=== PATIENT | female | born 1990 | race Caucasian/White ===

== ENCOUNTER 2019-03-21 18:31 | Emergency (ER) | payer OTHER ==
[~2019-03-21] VITALS: Ht 162.6 cm; Wt 102.5 kg
[~2019-03-21 18:31] MED LIST: ACET325T33 PO; BACL10TA PO; HYDR-4011 PO; IBUP-1561 PO; NAPR-985 PO
[2019-03-21 18:37] VITALS: BP 133/90; PULSE 117; RESP 20; Ht 162.6 cm; Wt 102.5 kg
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
== END 2019-03-21 18:56 | disposition home or self-care (01) ==
LOC: E/R 18:31
DX: M54.2 Cervicalgia (principal); M54.9 Dorsalgia, unspecified
CPT/HCPCS: 99283

== ENCOUNTER 2019-03-25 16:55 | Emergency (ER) | payer OTHER ==
[~2019-03-25] VITALS: Ht 162.6 cm; Wt 101.7 kg
[2019-03-25 17:03] VITALS: BP 146/78; PULSE 94; RESP 17; Ht 162.6 cm; Wt 101.7 kg
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
[2019-03-25] MEDS ORDERED: KETOROLAC 30 MG INJ IM STA (17:42)
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
== END 2019-03-25 18:57 | disposition home or self-care (01) ==
LOC: FTE 16:55
DX: M54.5 Low back pain (principal)
CPT/HCPCS: 72100; 81025; 96372; J1885; Z7502